=== PATIENT | male | born 1935 | race Caucasian/White ===

== ENCOUNTER → 2017-09-08 | Outpatient (CLI) | payer MEDICARE, OTHER ==
[~2017-09-08] MED LIST: ASCO100019 PO; CALC-116 PO; DIGO125T76 PO; DIGO250T PO; DILT-8 PO; FLUT12AE2 INH; FLUT1DIS5 IH; LEVA15HF4 INH; MULT-224 PO; OMEGA PO; Oxygen INH; PSYL174P2 PO; TIOT18CA INH; TRAV5DRO EACHEYE; VITA400T6 PO; ZOLP-413 PO; [UNRECOGNIZED DRUG - CODE] IV; [UNRECOGNIZED DRUG - OTHER] PO
[2017-09-08 12:37] LABS: ALANINE AMINOTRANSFERASE 29 U/L (12-78); ALBUMIN 3.4 g/dL (3.4-5.0); ANION GAP 3 mmol/L (5-15); CALCIUM 9.2 mg/dL (8.5-10.1); CHLORIDE 100 mmol/L (98-107); CREATININE 0.79 mg/dL (0.7-1.3)
[2017-09-08 12:40] LABS: ALKALINE PHOSPHATASE 97 U/L (45-117); BILIRUBIN,TOTAL 0.4 mg/dL (0.2-1.0); TOTAL PROTEIN 7.5 g/dL (6.4-8.2)
== END | disposition home or self-care (01) ==
LOC: STAR 10:35
PROVIDERS: ATTEND Surgery
DX: Z01.818 Encounter for other preprocedural examination (principal); I51.7 Cardiomegaly
CPT/HCPCS: 36415; 80053; 93005

== ENCOUNTER 2017-09-14 10:00 | Day surgery (SDC) | payer MEDICARE, OTHER ==
[~2017-09-14] VITALS: Ht 193 cm; Wt 70.1 kg
[~2017-09-14 10:00] MED LIST changes: +BUPIVACAINE/PF 0.5% ONE; +ENOXAPARIN 40 MG/0.4 ML SQ SCH
[2017-09-14] MEDS ORDERED: LACTATED RINGERS 1,000 ML IV SCH ×2 (10:18→18:30)
[2017-09-14 10:51] VITALS: BP 145/88
[2017-09-14] MEDS ORDERED: BUPIVACAINE/PF 0.5% ONE (14:44)
[2017-09-14] MEDS ORDERED: EPINEPHRINE 1 MG/ML, 1ML ONE (14:44)
[2017-09-14] MEDS ORDERED: FENTANYL PF 100 MCG/2ML ONE ×2 (15:10→16:53)
[2017-09-14] MEDS ORDERED: LIDOCAINE-MPF 2% ,5ML ONE (15:13)
[2017-09-14] MEDS ORDERED: CEFAZOLIN 1,000 MG ONE ×2 (15:24→16:35)
[2017-09-14] MEDS ORDERED: PHENYLEPHRINE 10 MG/ML ONE (15:24)
[2017-09-14] MEDS ORDERED: KETOROLAC 30 MG/1 ML ONE (15:24)
[2017-09-14] MEDS ORDERED: HYDROmorphone 1 MG/ML, 1ML IV PRN (16:30)
[2017-09-14] MEDS ORDERED: hydrALAzine 20 MG/ML, 1ML IV PRN (16:30)
[2017-09-14] MEDS ORDERED: EPHEDRINE 50 MG/ML, 1ML IM PRN (16:30)
[2017-09-14] MEDS ORDERED: OXYcodone 5 MG/5 ML ORAL.SOL UDC PO PRN (16:30)
[2017-09-14] MEDS ORDERED: ALBUTEROL SULFATE 2.5 MG/3 ML NPPB PRN ×2 (16:30→19:00)
[2017-09-14] MEDS ORDERED: ACETAMINOPHEN 325 MG TABLET PO PRN (16:30)
[2017-09-14] MEDS ORDERED: MIDAZOLAM 1 MG/ML, 2ML IV PRN (16:30)
[2017-09-14] MEDS ORDERED: PROMETHAZINE 25 MG/ML, 1ML IV PRN (16:30)
[2017-09-14] MEDS ORDERED: ALBUTEROL/IPRATROPIUM 2.5MG/0.5MG, 3 ML NPPB PRN (16:30)
[2017-09-14] MEDS ORDERED: DEXAMETHASONE 4 MG/ML, 1ML ONE (16:35)
[2017-09-14] MEDS ORDERED: PROPOFOL 10 MG/ML, 20ML ONE (16:35)
[2017-09-14] MEDS ORDERED: ONDANSETRON 2MG/ML, 2ML ONE (16:35)
[2017-09-14] MEDS ORDERED: OXYcodone 5 MG/5 ML ORAL.SOL UDC ONE (16:53)
[2017-09-14] MEDS ORDERED: ACETAMINOPHEN 650 MG/20.3 ML UDC ONE (16:53)
[2017-09-14] MEDS: FENTANYL PF 100 MCG/2ML IV PRN ×2 (16:57→17:10)
[2017-09-14] MEDS ORDERED: ONDANSETRON 2MG/ML, 2ML IVPush PRN (18:30)
[2017-09-14] MEDS ORDERED: DIPHENHYDRAMINE 50 MG/ML, 1ML IVPush PRN (18:30)
[2017-09-14] MEDS ORDERED: HYDROcodone/APAP 5/325 TABLET PO PRN (18:30)
[2017-09-14] MEDS ORDERED: KETOROLAC 30 MG/1 ML IV PRN (18:30)
[2017-09-14] MEDS ORDERED: MORPHINE SULFATE 4 MG/ML, 1ML IVPush PRN (18:30)
[2017-09-14] MEDS ORDERED: IPRATROPIUM 0.5 MG/2.5 ML INHA HHN SCH (19:00)
[2017-09-14] MEDS ORDERED: PSYLLIUM PACKET PO PRN (19:00)
[2017-09-14] MEDS ORDERED: ZOLPIDEM 5MG TABLET PO SCH (21:00)
[2017-09-14] MEDS ORDERED: DILTIAZEM 120 MG CAP.ER.24H PO SCH (21:00)
[2017-09-15] MEDS ORDERED: CALCIUM CITRATE 950 MG TABLET PO SCH (09:00)
[2017-09-15] MEDS ORDERED: MULTIVITAMIN 1 TABLET PO SCH (09:00)
[2017-09-15] MEDS ORDERED: FLUTICASONE/VILANTEROL 200-25MCG/INH INH SCH (09:00)
[2017-09-15] MEDS ORDERED: FLUTICASONE FUROATE 200MCG/INH INH PRN (09:00)
[2017-09-15] MEDS ORDERED: OMEGA-3/FISH OIL CAPSULE PO SCH (09:00)
[2017-09-15] MEDS ORDERED: TRAVOPROST OPHTH 0.004%, 2.5ML EACHEYE SCH (09:00)
[2017-09-15] MEDS ORDERED: DIGOXIN 0.25 MG TABLET PO SCH (09:00)
[2017-09-15] MEDS ORDERED: VITAMIN E 400 UNITS CAPSULE PO SCH (09:00)
[2017-09-15] MEDS ORDERED: ASCORBIC ACID 500 MG TABLET PO SCH (09:00)
[2017-09-18] MEDS ORDERED: GLASSIA IV SCH (19:00)
== END 2017-09-14 19:00 | disposition home or self-care (01) ==
LOC: OR 10:00 → 4NOR 17:51 → OR 19:00
PROVIDERS: ATTEND Surgery
DX: K40.91 Unilateral inguinal hernia, without obstruction or gangrene, recurrent (principal); J44.9 Chronic obstructive pulmonary disease, unspecified; H40.9 Unspecified glaucoma; E88.01 Alpha-1-antitrypsin deficiency; Z99.81 Dependence on supplemental oxygen; Z87.891 Personal history of nicotine dependence; Z72.89 Other problems related to lifestyle; Z79.899 Other long term (current) drug therapy
CPT/HCPCS: 49520; C1781; J0171; J0690; J1100; J1885; J2370; J2405; J2704; J3010; J3490; J7120

== ENCOUNTER 2017-09-16 17:55 | Emergency (ER) | payer MEDICARE, OTHER ==
[~2017-09-16] VITALS: Ht 193 cm; Wt 73.2 kg
[~2017-09-16 17:55] MED LIST changes: -BUPIVACAINE/PF 0.5% ONE; -ENOXAPARIN 40 MG/0.4 ML SQ SCH
[2017-09-16 17:56] VITALS: BP 130/63
== END 2017-09-16 19:46 | disposition home or self-care (01) ==
LOC: ED 18:30
DX: L76.32 Postprocedural hematoma of skin and subcutaneous tissue following other procedure (principal); Z87.891 Personal history of nicotine dependence
CPT/HCPCS: 76870; 99284

== ENCOUNTER 2019-10-15 10:48 | Emergency (ER) | payer MEDICARE, OTHER ==
[~2019-10-15] VITALS: Ht 193 cm; Wt 72.2 kg
[~2019-10-15 10:48] MED LIST changes: -DIGO250T PO; +DIGO250T3 PO; -MULT-224 PO; +MULT-642 PO
--- NOTE | 2019-10-15 11:37 | NUR ---
PATIENT ARRIVED WITH AN EMS REPORT OF SHORTNESS OF BREATH BEGINNING YESTERDAY AND UNRESPONSIVE TODAY WHEN FAMILY CHECKED ON HIM THIS MORNING. PATIENT ARRIVED INTUBATED WITH RESPIRATIONS PROVIDED MANUALLY WITH AMBU BAG. UNABLE TO FIND A PULSE UPON ADMISSION TO THE ED. NO CARDIAC ACTIVITY WITH ULTRASOUND BY DR. PHIPPS. TIME OF WAS PRONOUCED BY DR. PHIPPS AT 1056AM.
--- NOTE | 2019-10-15 11:48 | NUR ---
INITIAL CALL COMPLETED TO THE [facility]. REFERRAL NUMBER IS [id number]. [facility] TO CALL BACK.
--- NOTE | 2019-10-15 12:08 | NUR ---
, BRUNA MARIN' CELL NUMBER IS . DAUGHTER, ANGELICA LINARES' NUMBER IS .
--- NOTE | 2019-10-15 12:08 | NUR ---
JOANNE FROM [employer] [facility] CALLED. PATIENT'S DEMOGRAPHIC INFORMATION VERIFIED AND FAMILY'S CONTACT INFORMATION GIVEN. [facility] TO CALL BACK IN ONE HOUR.
--- NOTE | 2019-10-15 12:12 | NUR ---
AND DAUGHTER AT BEDSIDE. AWAITING SON TO ARRIVE FROM [place].
--- NOTE | 2019-10-15 14:50 | NUR ---
FAMILY HAS FINISHED VISITING. TRANSFERRING PATIENT'S BODY TO [facility].
== END 2019-10-15 15:22 | disposition expired ==
LOC: ED 13:20
DX: I46.9 Cardiac arrest, cause unspecified (principal); J44.9 Chronic obstructive pulmonary disease, unspecified; Z87.891 Personal history of nicotine dependence
CPT/HCPCS: 99284